=== PATIENT | male | born 1955 | race African-American/Black ===

== ENCOUNTER 2019-05-25 15:29 | Emergency (ER) | payer OTHER ==
[~2019-05-25] VITALS: Ht 175.3 cm; Wt 148.0 kg
[2019-05-25] MEDS ORDERED: HYDROCODONE/ACETAMINOPHEN 5/325MG TABLET PO STA (15:58)
[2019-05-25] MEDS ORDERED: ONDANSETRON HCL 4MG/2ML INJ IV STA (15:58)
[2019-05-25] MEDS ORDERED: NITROGLYCERIN OINT 1GM/INCH UDPKT TD ONE (16:00)
[2019-05-25] MEDS ORDERED: ASPIRIN 81MG TABLET PO ONE (16:00)
[2019-05-25 17:02] LABS: BASOPHILS % 0.9 % (0.0-2.0); EOSINOPHILS % 0.2 % (0.0-5.0); HEMATOCRIT. 35.5 % (42.0-52.0); HEMOGLOBIN. 12.4 g/dL (14.0-18.0); LYMPHOCYTES % 19.6 % (20.0-50.0); MEAN CORPUSCULAR VOLUME 88.8 fL (80.0-94.0); MEAN PLATELET VOLUME 7.8 fl (7.4-10.4); MONOCYTES % 10.8 % (2.0-8.0); NEUTROPHILS % 68.5 % (40.0-76.0); PLATELET 291 x1000/uL (130-400)
[2019-05-25 17:06] LABS: CHLORIDE 106 mEq/L (98-107)
[2019-05-25 17:09] LABS: ETHANOL BLOOD < 10 mg/dL
[2019-05-25 23:21] VITALS: BP 111/63
== END 2019-05-26 00:08 | disposition home or self-care (01) ==
LOC: ER 15:29 → EDBEDREQ 16:01 → ER 05-26 00:08 → CANBEDREQ 05-26 01:43
DX: R07.89 Other chest pain (principal); R11.10 Vomiting, unspecified; I10 Essential (primary) hypertension
CPT/HCPCS: 36415; 71045; 80053; 80320; 83690; 83880; 84484; 85025; 93005; 96374; 99291; J2405; Z7610; G0480

== ENCOUNTER 2025-01-05 10:36 | Emergency (ER) | payer BC, OTHER ==
[~2025-01-05] VITALS: Ht 188 cm; Wt 145.0 kg
[2025-01-05 10:48] VITALS: O2SAT 99
[2025-01-05] MEDS: ASPIRIN 81MG TABLET PO ONE (11:17)
[2025-01-05 11:33] LABS: BASOPHILS % 0.8 % (0.0-2.0); EOSINOPHILS % 2.8 % (0.0-5.0); HEMATOCRIT. 34.2 % (42.0-52.0); HEMOGLOBIN. 11.9 g/dL (14.0-18.0); LYMPHOCYTES % 27.4 % (20.0-50.0); MEAN PLATELET VOLUME 7.7 fl (7.4-10.4); MONOCYTES % 8.0 % (2.0-8.0); NEUTROPHILS % 61.0 % (40.0-76.0); PLATELET 400 x1000/uL (130-400); RED BLOOD CELL COUNT 3.73 mill/uL (4.7-6.1); RED CELL DISTRIBUTION WIDTH 17.3 % (11.6-14.6)
[2025-01-05 11:45] LABS: CREATININE 1.1 mg/dL (0.6-1.3); TROPONIN I HIGH SENSITIVITY < 4 ng/L (3.0-53); UREA NITROGEN BLOOD 13 mg/dL (9-23)
[2025-01-05 11:47] LABS: ASPARTATE AMINOTRANSFERASE 20 IU/L (<34); BILIRUBIN DIRECT 0.4 mg/dL (<=3.0); BILIRUBIN TOTAL 1.1 mg/dL (0.1-1.0); PROTEIN TOTAL 7.7 g/dL (6.0-8.3)
[2025-01-05 15:31] LABS: TROPONIN I HIGH SENSITIVITY < 4 ng/L (3.0-53)
[2025-01-05 15:57] VITALS: BP 133/70; PULSE 50; RESP 16; TEMP 36.8; O2SAT 100
== END 2025-01-05 16:23 | disposition home or self-care (01) ==
LOC: ER 10:36
DX: R07.89 Other chest pain (principal); K76.0 Fatty (change of) liver, not elsewhere classified; N28.1 Cyst of kidney, acquired; Z79.899 Other long term (current) drug therapy
CPT/HCPCS: 36415; 71045; 76705; 80048; 80076; 84484; 85025; 93005; 99285